=== PATIENT | male | born 1945 | race Caucasian/White ===

== ENCOUNTER 2017-10-19 10:11 | Emergency (ER) | payer OTHER ==
--- NOTE | 2017-10-19 10:48 | EDPHY ---
H & P Time Seen by Provider: 10/19/17 10:27 HPI/ROS: This patient presents with a 3 day history of increasing right thumb discomfort and swelling. He reports 6/10 throbbing pain with associated tenderness and significant progression of his symptoms over the past 24 hr. He reports they 1st noted a small"black dot it the distal nail bed prior to the onset of swelling initially to the thumb tip but then progressed to swelling to the paronychia region and eponychial region with I slightly ecchymotic room to the large bulla. He has not had this occur to him before. He does not recall any antecedent injury, insect bite or other. His daughter brought him in for further evaluation of the symptoms. ROS: No fevers or chills. No other constitutional symptoms HEENT: No complaints new line cardiovascular: No discoloration of other extremities. Integumentary: No skin rash elsewhere. No mucosal membrane lesions. No recent cold sores. Musculoskeletal: No bony pain the affected thumb. GI: No nausea or vomiting. 7 point ROS is otherwise negative. Past Medical/Surgical History: Patient has diet controlled type 2 diabetes. He believes his last tetanus was sometime in the last 10 years but he is uncertain the exact timing. He admits he has not seen a primary physician for quite some time. Social History: Retired Occasional social alcohol. No drug use. Lives alone The patient was on the [facility] [employer] department for many years Smoking Status: Current every day smoker Physical Exam: Physical Exam Vital signs are normal. General: No acute distress HEENT: No ketone halitosis . Mucous membranes are moist. There is no lip lesions present. No intraoral lesions present. Eyes: Pupils equal and react to light. Extraocular motions are intact. Lungs: No respiratory distress. Cardiac: Brisk capillary refill is intact throughout. Extremities: Atraumatic normal ( Right thumb: Patient has a bulla that covers most of the distal phalanx with slight bluish whitish discoloration but capillary refill maintain. Neurovascularly intact. There is mild erythema proximal to this in the dorsum of the proximal phalanx of the thumb. Skin: No rash or pallor. Neuro: Alert with no sensorimotor deficits in the affected thumb. Initial differential diagnosis: Finger abscess/cellulitis, osteomyelitis Herpetic sami, advanced eponychium/paronychia, Constitutional: Initial Vital Signs Temperature (C) 37.1 C 10/19/17 10:21 Heart Rate 102 H 10/19/17 10:21 Respiratory Rate 18 10/19/17 10:21 Blood Pressure 109/81 H 10/19/17 10:21 O2 Sat (%) 95 10/19/17 10:21 O2 Delivery Mode Room Air Allergies/Adverse Reactions: No Known Allergies Allergy (Verified 12/15/11 22:22) Home Medications: Medication Instructions Recorded Aspirin [Aspirin 81mg (OTC)] 162 mg PO DAILY 11/17/11 Cephalexin [Keflex (*)] 500 mg PO TID #30 cap 10/19/17 Mucinex 10/19/17 MDM/Departure - MDM Procedures: Abscess I&D: After verbal consent plain the patient's them by soaking it in warm soapy water for 15 min followed by chlorhexidine scrub. Using a 11. Scalpel blade and made multiple small incisions in the distal phalanx of the thumb each hyphema mm in size T shaped with drainage of large amounts of purulent material sent for culture and for HSV PCR. The patient tolerated the procedure well. After abscess was drained the thumb was cleaned again by our tech with a dressing applied. There were no complications. Medications Given: Discontinued Medications Diphtheria/Tetanus/Acell Pertussis (Boostrix) 0.5 ml IM .ONCE ONE Stop: 10/19/17 11:18 Last Admin: 10/19/17 12:15 Dose: 0.5 ml Ceftriaxone Sodium/Dextrose (Rocephin 1 Gm (Premix)) 50 mls @ 100 mls/hr IV EDNOW ONE PRN Reason: Protocol Stop: 10/19/17 11:44 Last Admin: 10/19/17 11:34 Dose: 50 mls ED Course/Re-evaluation: Discussion: Given patient with finger abscess and cellulitis, further workup was pursued to rule out osteomyelitis in this patient with untreated type 2 diabetes at risk for more significant infections. Given normal ESR and x-ray without evidence of osteomyelitis by my impression and not think this patient has osteomyelitis. We also ruled out DKA. He will proceed home with cephalexin antibiotic and wound care. He understands the need to return emergency department should she develop any worsening symptoms despite the treatment plan. I encouraged him to follow up with Dr. Suh-internal medicine physician in this building as he requested a primary care physician located at [facility]. - Depart Disposition: Home, Routine, Self-Care Clinical Impression: Cellulitis and abscess of finger, unspecified Type II diabetes mellitus Qualifiers: Diabetes mellitus care home insulin use: without rock cutter use Diabetes mellitus complication status: with skin complications Diabetes mellitus complication detail: with other skin complication Qualified Code(s): E11.628 - Type 2 diabetes mellitus with other skin complications Condition: Fair Instructions: Cellulitis (ED) Additional Instructions: Diagnosis: Right thumb abscess and cellulitis Plan: Keflex antibiotic. Can start this this evening or tomorrow and take it for 10 days Tylenol for discomfort if needed Leave dressing in place for the next 24 hr, then remove in clean daily with warm soapy water. Return if he develops any worsening of symptoms despite treatment plan, onset of fevers, vomiting or any other concerns. Make an appointment to follow up with Dr. Suh, internal medicine physician in the same building up stairs to establish primary care physician Prescriptions: Cephalexin [Keflex (*)] 500 mg PO TID #30 cap Referrals: OUMAR MOON [Primary Care Provider] - As per Instructions Oc Suh MD [Medical Doctor] - As per Instructions
[2017-10-19] MEDS ORDERED: TDAP ADULT 0.5 ML INJ (BOOSTRIX) IM ONE (11:17)
[2017-10-19 12:05] LABS: PLATELET COUNT 188 10^3/uL (150-400)
[2017-10-19 13:20] VITALS: BP 115/80
== END 2017-10-19 12:44 | disposition home or self-care (01) ==
LOC: CED 10:11
PROC: 0H9FXZZ Drainage of Right Hand Skin, External Approach (ICD-10-PCS; principal; 2017-10-19)
DX: E11.628 Type 2 diabetes mellitus with other skin complications (principal); L03.011 Cellulitis of right finger; F17.200 Nicotine dependence, unspecified, uncomplicated; Z23 Encounter for immunization; Z79.82 Long term (current) use of aspirin
CPT/HCPCS: 10060; 73140; 90471; 90715; 96365; 99284; J0696; 80048-PO; 85025-PO; 85652-PO; 87529-90